=== PATIENT | female | born 1990 | race Two or more races ===

== ENCOUNTER 2016-08-05 10:40 | Outpatient (CLI) | payer MEDICAID | END 2016-08-05 10:41 | disposition home or self-care (01) | LOC: NC 10:40 | PROVIDERS: ATTEND Obstetrics & Gynecology | DX: O24.419 Gestational diabetes mellitus in pregnancy, unspecified control (principal); O99.212 Obesity complicating pregnancy, second trimester; Z3A.23 23 weeks gestation of pregnancy ==

== ENCOUNTER 2016-08-16 17:30 | Outpatient (CLI) | payer MEDICAID | END 2016-08-16 17:31 | disposition home or self-care (01) | LOC: NC 17:30 | PROVIDERS: ATTEND Family Medicine | DX: O24.410 Gestational diabetes mellitus in pregnancy, diet controlled (principal); Z71.3 Dietary counseling and surveillance; O99.210 Obesity complicating pregnancy, unspecified trimester; E66.9 Obesity, unspecified; Z68.32 Body mass index [BMI] 32.0-32.9, adult ==

== ENCOUNTER 2016-10-24 17:51 | Outpatient (CLI) | payer MEDICAID ==
[2016-10-24 18:09] VITALS: BMI 34.7
[2016-10-24] MEDS ORDERED: TERBUTALINE SULFATE 1 MG/ML VIAL SUB-Q ONE (18:29)
[2016-10-24] MEDS ORDERED: ACETAMINOPHEN 325 MG TABLET PO ONE (18:50)
[2016-10-24 20:19] LABS: PH,URINE 6.5 (5.0-8.0); URINE BILIRUBIN NEGATIVE (NEGATIVE); URINE BLOOD NEGATIVE (NEGATIVE); URINE GLUCOSE (UA) NEGATIVE (NEGATIVE); URINE LEUKOCYTE ESTERASE NEGATIVE (NEGATIVE); URINE NITRITE NEGATIVE (NEGATIVE); URINE PROTEIN TRACE (NEGATIVE); URINE UROBILINOGEN NORMAL (0-1 mg/dl)
[2016-10-24 20:24] LABS: URINE APPEARANCE CLEAR; URINE COLOR YELLOW
[2016-10-24 20:25] LABS: URINE BACTERIA RARE; URINE EPITHELIAL CELLS MODERATE /hpf; URINE RBC 0-1 /hpf; URINE WBC 0-1 /hpf
== END 2016-10-24 21:56 | disposition home or self-care (01) ==
LOC: FBCOUT 17:51 → FBC 17:52 → FBCOUT 21:56
PROVIDERS: ATTEND Obstetrics & Gynecology
DX: O60.00 Preterm labor without delivery, unspecified trimester (principal); Z3A.00 Weeks of gestation of pregnancy not specified